=== PATIENT | male | born 1955 | race American Indian/Alaskan Native ===

== ENCOUNTER 2016-09-26 06:38 | Day surgery (SDC) | payer OTHER, BC ==
[2016-09-26] MEDS ORDERED: WATER FOR IRRIG STERILE ONE (07:23)
[2016-09-26] MEDS ORDERED: DIPRIVAN 10 MG/ML IV ONE ×2 (07:25)
--- NOTE | 2016-09-26 07:50 | Anesthesia Day of Surgery ---
Anesthesia Day of Surgery - Day of Surgery Patient Examined: Yes Patient H&P Reviewed: Yes Patient is NPO: Yes
--- NOTE | 2016-09-26 07:50 | Anesthesia Consultation ---
Anesthesia Consult and Med Hx Date of service: 09/26/16 - Airway Anesthetic Teeth Evaluation: Good ROM Head & Neck: Adequate Mental/Hyoid Distance: Adequate Mallampati Class: Class II Intubation Access Assessment: Probably Good - Pulmonary Exam CTA: Yes - Cardiac Exam Cardiac Exam: RRR - Pre-Operative Health Status ASA Pre-Surgery Classification: ASA2 Proposed Anesthetic Plan: MAC - Pulmonary Hx Smoking: No - Cardiovascular System Hx Hypertension: Yes (20YRS) - Central Nervous System Hx Neuromuscular Disorder: No (RA) Hx Psychiatric Problems: No - Gastrointestinal Hx Gastroesophageal Reflux Disease: No - Endocrine Hx Insulin Dependent Diabetes: No - Hematic Hx Anemia: No Hx Sickle Cell Disease: No - Other Systems Hx Alcohol Use: No Hx Substance Use: No Hx Cancer: No Hx Obesity: No
[2016-09-26] MEDS ORDERED: WATER FOR IRRIG STERILE IR ONE (08:39)
[2016-09-26] MEDS ORDERED: NACL 0.9% 1000 ML 1,000 ML IV SCH (09:00)
--- NOTE | 2016-09-26 09:24 | Post Anesthesia Evaluation ---
- Post Anesthesia Evaluation Patient Participated: Yes Airway Patent: Yes Stable Respiratory Function: Yes Temp > 96.8F: Yes Pain Manageable: Yes Adequeate Hydration: Yes Anesthesia Complications: No Block Receding Appropriately: Not Applicable
--- NOTE | 2016-09-26 09:27 | Short Stay Summary ---
Short Stay Documentation - Allergies and Medications Current Medications: Allergies No Known Allergies Allergy (Verified 09/26/16 07:30) Home Medications Medication Instructions Recorded Confirmed Last Taken Type Aspirin EC [Ecotrin] 325 mg PO QDAY 09/25/16 09/26/16 09/25/16 History Doxazosin [Cardura] 4 mg PO QDAY 09/25/16 09/26/16 09/25/16 History Lisinopril [Zestril] 20 mg PO QDAY 09/25/16 09/26/16 09/25/16 History [place]-3 Fatty Acids/Fish Oil [Fish 1,000 mg PO QDAY 09/25/16 09/25/16 Unknown History Oil] Vit C/Vit E/Lutein/Min/[place]-3 1 each PO QDAY 09/25/16 09/25/16 Unknown History [Ocuvite Softgel] Active Medications Sodium Chloride (Nacl 0.9% 1000 Ml) 1,000 mls @ 50 mls/hr IV DIRECT KENY Stop: 09/26/16 15:00 Last Admin: 09/26/16 08:45 Dose: 50 mls/hr - Brief post op/procedure progress note Date of procedure: 09/26/16 Pre-op diagnosis: Colon cancer screening Post-op diagnosis: same (1. Incomplete colonoscopy 2. Internal hemorrhoids) Procedure: Colonoscopy ( incomplete) Anesthesia: MAC Findings: as above Surgeon: SARITA FERREIRA Estimated blood loss: none Pathology: none Condition: stable - Disposition Condition at discharge: Stable Disposition: DC-01 TO HOME OR SELFCARE Short Stay Discharge Plan Diet: regular, low salt Follow up with: MICHELLE DAMON MD [Primary Care Provider] - 7 Days
[2016-09-26 09:50] VITALS: BP 149/88
== END 2016-09-26 06:39 | disposition home or self-care (01) ==
LOC: GIO 06:38
PROVIDERS: ATTEND Internal Medicine Gastroenterology
DX: Z09 Encounter for follow-up examination after completed treatment for conditions other than malignant neoplasm (principal); K64.0 First degree hemorrhoids; H40.9 Unspecified glaucoma; M06.9 Rheumatoid arthritis, unspecified; I10 Essential (primary) hypertension; E78.00 Pure hypercholesterolemia, unspecified; M19.90 Unspecified osteoarthritis, unspecified site; Z72.89 Other problems related to lifestyle; Z79.82 Long term (current) use of aspirin; Z79.899 Other long term (current) drug therapy; Z87.19 Personal history of other diseases of the digestive system; Z98.890 Other specified postprocedural states; Z80.0 Family history of malignant neoplasm of digestive organs
CPT/HCPCS: 45378; J2704; J7030

== ENCOUNTER 2018-05-29 11:34 | Outpatient (CLI) | payer OTHER, BC ==
--- NOTE | 2018-05-29 21:28 | XRay Report ---
PROCEDURE: XR CHEST ROUTINE 2V TECHNIQUE: PA and lateral chest radiographs were obtained. HISTORY: ACUTE BRONCHITIS DUE TO OTHER SPECIFIED ORGANISMS COMPARISONS: None. FINDINGS: Heart: Normal. Mediastinum/Vessels: Normal. Lungs/Pleural space: Normal. Bony thorax: No acute osseous abnormality. IMPRESSION: Normal examination. This document is electronically signed by Mary Jauregui DO., May 29 2018 09:26:32 PM ET
== END 2018-05-29 11:35 | disposition home or self-care (01) ==
LOC: XRAY 11:34
PROVIDERS: ATTEND Internal Medicine
DX: J20.8 Acute bronchitis due to other specified organisms (principal); F17.200 Nicotine dependence, unspecified, uncomplicated; I10 Essential (primary) hypertension
CPT/HCPCS: 71046

== ENCOUNTER 2020-09-02 07:17 | Emergency (ER) | payer BC, MEDICARE, OTHER ==
[2020-09-02 07:30] VITALS: BP 152/78
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
== END 2020-09-02 09:06 | disposition home or self-care (01) ==
LOC: ED 07:17
DX: M25.512 Pain in left shoulder (principal); M25.561 Pain in right knee; I10 Essential (primary) hypertension; M19.91 Primary osteoarthritis, unspecified site; Z79.899 Other long term (current) drug therapy; V49.59XA Passenger injured in collision with other motor vehicles in traffic accident, initial encounter; W22.10XA Striking against or struck by unspecified automobile airbag, initial encounter; Y93.89 Activity, other specified; Y92.410 Unspecified street and highway as the place of occurrence of the external cause; Y99.8 Other external cause status
CPT/HCPCS: 99282